=== PATIENT | female | born 1960 | race Caucasian/White ===

== ENCOUNTER 2025-04-07 07:47 | Outpatient (CLI) | payer MEDICARE ==
[2025-04-07] MEDS ORDERED: Iopamidol 370 76% 100 ML VIAL ONE (10:11)
== END 2025-04-07 07:48 | disposition home or self-care (01) ==
LOC: CT 07:47
PROVIDERS: ATTEND Family Medicine
DX: R07.89 Other chest pain (principal); Z85.831 Personal history of malignant neoplasm of soft tissue
CPT/HCPCS: 71270; Q9967